=== PATIENT | female | born 1955 | race Caucasian/White ===

== ENCOUNTER 2024-09-01 09:08 | Emergency (ER) | payer BC ==
[~2024-09-01] VITALS: Ht 157.5 cm; Wt 80.8 kg
[2024-09-01 09:52] VITALS: TEMP 98.4
[2024-09-01] MEDS: ketorolac trometh 15mg/ml vial 15 MG/ML ML IV ONE (10:03)
[2024-09-01 10:08] LABS: BILIRUBIN,URINE NEGATIVE (Neg); CLARITY,URINE CLEAR (Clear); COLOR,URINE YELLOW (Yellow); GLUCOSE, URINE NEGATIVE (Neg); KETONES,URINE NEGATIVE (Neg); LEUKOCYTE ESTERASE ,URINE NEGATIVE (Neg); NITRITES, URINE NEGATIVE (Neg); OCCULT BLOOD,URINE NEGATIVE (Neg); PROTEIN,URINE NEGATIVE (Neg); UROBILINOGEN,URINE 0.2 E.U/dL (0.2-1.0)
[2024-09-01 10:17] LABS: UA COLLECTION TYPE CLN CATCH MIDSTREAM
[2024-09-01 10:19] VITALS: BP 148/82; PULSE 60; RESP 15; O2SAT 97
--- NOTE | 2024-09-01 10:21 | RADIOLOGY REPORT ---
CT ABDOMEN AND PELVIS WITHOUT CONTRAST CLINICAL HISTORY: back pain TECHNIQUE: Multiple contiguous axial images of the abdomen and pelvis without intravenous contrast. T he images were reformatted degenerate coronal and sagittal reconstructions. All CT scans at this medical facility are performed using dose modulation techniques as appropriate t o a performed exam including the following:Automated exposure control was utilized; adjustment of the MA and/or KV according to patient size; and use of iterative reconstruction technique. Radiation Dose Information: CT Dose: CTDI volume is 25 mGy. Dose-length product is 1143 mGy*cm Comparison: None FINDINGS: Evaluation of the abdomen and pelvis is limited without intravenous contrast. There is a 5 mm calculus in the lower pole of the left kidney. There is no right renal calculus. Th ere is no hydronephrosis. There is no evidence of a ureteral calculus or hydroureter. There are scattered punctate calcified granulomas in the spleen. The liver, gallbladder, pancreas, adrenal glands, appear within normal limits. There is no gross evidence of abdominal lymphadenopathy. There is no free fluid or free air. The stomach grossly appears unremarkable. The small and large bowel loops demonstrate normal caliber and distribution. There are diverticula in the sigmoid colon without evidence of acute diverticulit is. A normal appearing appendix is seen in the right lower quadrant abdomen. The abdominal aorta and IVC appear within normal limits. The bladder appears unremarkable for the degree of distention. Uterus is surgically absent.. There i s no gross evidence of a pelvic mass. There is no free fluid collection. Lung bases are clear. There is no acute osseous abnormality. IMPRESSION: 1. There is no acute process in the abdomen and pelvis. 2. 5 mm nonobstructive calculus in the lower pole of the left kidney. 3. Sigmoid diverticulosis. HS:Y
[2024-09-01 11:00] LABS: BASOPHILS % (AUTO) 0.5 % (0-1); EOSINOPHILS # (AUTO) 0.2 X10'3 (0-0.9); EOSINOPHILS % (AUTO) 2.1 % (0-6); HEMOGLOBIN 14.8 g/dl (12.0-16.0); LYMPHOCYTES # (AUTO) 1.8 X10'3 (1.1-4.8); LYMPHOCYTES % (AUTO) 25.3 % (21-51); MEAN CORPUSCULAR HEMOGLOBIN 31.7 PG (27.0-31.0); MEAN CORPUSCULAR HGB CONC 34.4 g/dL (33.0-36.5); MEAN PLATELET VOLUME 8.1 FL (7.4-10.4); MONOCYTES # (AUTO) 0.4 X10'3 (0-0.9); NEUTROPHILS # (AUTO) 4.8 X10'3 (1.8-7.7); NEUTROPHILS % (AUTO) 66.1 % (42-75); PLATELET COUNT 266 X10'3 (140-440); RED BLOOD COUNT 4.68 X10'6 (4.20-5.60); RED CELL DISTRIBUTION WIDTH 12.9 % (11.5-14.5); WHITE BLOOD COUNT 7.2 X10'3 (4.5-11.0)
[2024-09-01 11:19] LABS: ALANINE AMINOTRANSFERASE 26 U/L (12-78); ALBUMIN 3.9 G/DL (3.4-5.0); ALBUMIN/GLOBULIN RATIO 1.2 (1.1-1.5); ALKALINE PHOSPHATASE 75 IU/L (46-116); ANION GAP 12 (8-16); ASPARTATE AMINO TRANSFERASE 11 U/L (10-37); BILIRUBIN,TOTAL 0.8 MG/DL (0.1-1.0); BLOOD UREA NITROGEN 11 MG/DL (7-18); BUN/CREATININE RATIO 15.3 (10.0-20.0); CALCIUM 8.8 MG/DL (8.5-10.1); CHLORIDE 107 MMOL/L (99-107); CREATININE 0.72 MG/DL (0.40-0.90); GLUCOSE 108 MG/DL (70-104); POTASSIUM 4.1 MMOL/L (3.5-5.1); SODIUM 146 MMOL/L (135-145); TOTAL CARBON DIOXIDE 27.4 MMOL/L (24-32); TOTAL PROTEIN 7.1 G/DL (6.4-8.2); eCRCL 60 ML/MIN; eGFR 81 ML/MIN
[2024-09-01] MEDS ORDERED: DICL50TA8 PO (11:41)
[2024-09-01] MEDS ORDERED: HYDR-3965 PO (11:41)
--- NOTE | 2024-09-01 11:42 | Physician Documentation ---
History of Present Illness ~ Chief Complaint: Back Pain Stated Complaint: L SIDED BACK/RIB PAIN Time Seen by MD: 09:19 Primary Medical Doctor: NONE Mode of Arrival: POV HPI Patient is here with a left lower back pain. Pain is in the paraspinal muscles at the mid axillary line and posterior. Radiates radiates superiorly. Started three days ago. She does not know what makes it better or worse. Sometimes that when she lays down it becomes a severe pain and sharp. She denies trauma. She has a history of back pain but has not remember injuring herself she has not done any heavy lifting or anything out of her normal activities. Denies numbness tingling weakness no bowel or bladder dysfunction or any other symptoms. Medication Reconciliation Allergies: Coded Allergies: No Known Allergies (Unverified , 09/01/24) Physical Exam Physical Exam Vital Signs: Temperature: 98.4, Source: Temporal, Heart Rate: 60, Respiratory Rate: 15, BP: 148/82, Pulse Oximetry: 97, Weight: 80.750 Oxygen Flow Rate: 0 Physical Exam General: Awake and Alert, no acute distress. HEENT: Conjunctiva pink, Sclera clear, Mucus Membranes moist. Neck: Supple without masses and tenderness. Resp: Unlabored. Lungs clear to auscultation bilaterally. Heart: Regular Rate and rhythm, normal S1 and S2 without murmur, rub or gallop. Abdomen: Soft and non tender no organomegaly Extremities: No cyanosis,clubbing or edema.\ Back: No rash no abrasions or contusions there is pain over the paraspinal muscles in the left lower lumbar spine. Definitely point tenderness. . Skin: Warm and Dry. Neuro: GCS 15; no focal deficits; normal strength sensation to light touch normal DTRs in the lower extremities bilaterally. Progress Results/Orders Results/Orders Orders - SHONDA YOUSSEF MD Ct Abdomen Pelvis (09/01/24 09:38) Completed Orders - SHONDA YOUSSEF MD Cbc/Diff (09/01/24 09:25) CMP (09/01/24 09:25) Urinalysis, Cult If Indicated (09/01/24 09:25) Ct Abdomen Pelvis (09/01/24 09:38) Ketorolac Trometh 15mg/Ml Vial (Toradol (09/01/24 09:25) Medications Received in ER Medications (Trade) Dose Ordered Sig/Imani Route PRN Reason Start Time Stop Time Status Last Admin Dose Admin (Toradol injection) 15 mg ONCE ONCE IV 09/01/24 09:25 09/01/24 09:27 DC 09/01/24 10:03 15 MG Vital Signs 09/01/24 09/01/24 09/01/24 09/01/24 09:12 09:33 09:52 10:03 Temp 98.4 98.4 Pulse 74 60 Resp 18 17 15 B/P (MAP) 192/98 161/82 (108) Pulse Ox 99 98 O2 Flow Rate 0 0 09/01/24 10:19 Pulse 60 Resp 15 B/P (MAP) 148/82 (104) Pulse Ox 97 O2 Flow Rate 0 Laboratory Tests Test 09/01/24 09:50 09/01/24 10:23 Urine Specimen Description Cln catch midstream Urine Color Yellow Urine Clarity Clear Urine pH 6.0 Urine Specific [place] 1.010 Urine Protein Negative Urine Glucose (UA) Negative Urine Ketones Negative Urine Occult Blood Negative Urine Nitrite Negative Urine Bilirubin Negative Urine Urobilinogen 0.2 Urine Leukocyte Esterase Negative Urine Culture Indicated Not ind Volume Urine Centrifuged 10 ml Urine Comment White Blood Count 7.2 Red Blood Count 4.68 Hemoglobin 14.8 Hematocrit 43.0 Mean Corpuscular Volume 92.0 Mean Corpuscular Hemoglobin 31.7 H Mean Corpuscular Hemoglobin Concent 34.4 Red Cell Distribution Width 12.9 Platelet Count 266 Mean Platelet Volume 8.1 Neutrophils (%) (Auto) 66.1 Lymphocytes (%) (Auto) 25.3 Monocytes (%) (Auto) 6.0 Eosinophils (%) (Auto) 2.1 Basophils (%) (Auto) 0.5 Neutrophils # (Auto) 4.8 Lymphocytes # (Auto) 1.8 Monocytes # (Auto) 0.4 Eosinophils # (Auto) 0.2 Basophils # (Auto) 0.0 CBC Comment Sodium Level 146 H Potassium Level 4.1 Chloride Level 107 Carbon Dioxide Level 27.4 Anion Gap 12 Blood Urea Nitrogen 11 Creatinine 0.72 Estimated GFR/1.73 m2 81 BUN/Creatinine Ratio 15.3 Glucose Level 108 H Calcium Level 8.8 Total Bilirubin 0.8 Aspartate Amino Transf (AST/SGOT) 11 Alanine Aminotransferase (ALT/SGPT) 26 Alkaline Phosphatase 75 Total Protein 7.1 Albumin 3.9 Globulin 3.2 Albumin/Globulin Ratio 1.2 Chemistry Comments Medical Decision Making Findings Patient is here with musculoskeletal back pain. Did radiate up into the left flank so I did a urinalysis that has negative CT scan is negative for stone or any acute abnormalities. Labs are reassuring. Patient was given IV Toradol that has helped some she is driving so it did not give her any further pain medication. I wrote a prescription for a few hydrocodone diclofenac and patient was discharged Departure Disposition: HOME / SELF CARE / HOMELESS Impression: Primary Impression: Back problem Condition: Stable Discharge Instructions: Acute Back Pain, Adult Additional Instructions: Follow up with your regular doctor for further testing. Returned for fever worsening symptoms or any concerns. Referrals: NO PRIMARY CARE PROVIDER (PCP) Prescriptions Diclofenac Sodium (Diclofenac Sodium) 50 Mg Tablet.dr 1 TAB PO Q12H for 14 Days, #28 TAB 0 Refills Prov: SHONDA YOUSSEF MD 09/01/24 Hydrocodone Bit/Acetaminophen 5/325 MG ([place] 5/325 MG) 5 Mg/325 Mg Tablet 1 TAB PO Q6H PRN for pain, #12 TAB Prov: SHONDA YOUSSEF MD 09/01/24 Education Educated: Patient Educated regarding: diagnosis, treatment, prognosis, need for follow up Signature Scribe Signature: no scribe Attestation: no scribe SHONDA YOUSSEF MD Sep 01, 2024 11:42
== END 2024-09-01 12:05 | disposition home or self-care (01) ==
LOC: ER 09:09
DX: M54.50 Low back pain, unspecified (principal)
CPT/HCPCS: 36415; 74176; 80053; 81003; 85025; 96374; 99285; J1885